=== PATIENT | female | born 1940 | race Hispanic/Latino ===

== ENCOUNTER → 2025-05-25 | Emergency (ER) | payer MEDICAID ==
[~2025-05-25] VITALS: Ht 154.9 cm; Wt 67.1 kg
[~2025-05-25] MED LIST: AMLO-257 PO; AZIT250T9 PO; BENZ-39 PO; FERR-82 PO; METF-445 PO; METH4TAB3 PO; VALS1TAB76 PO
[2025-05-25 08:01] LABS: APPEARANCE,URINE CLEAR (CLEAR); GLUCOSE, URINE (UA) NEGATIVE (NEGATIVE); LEUKOCYTE ESTERASE ,URINE NEGATIVE Leu/uL (NEGATIVE); NITRATE,URINE NEGATIVE (NEGATIVE); OCCULT BLOOD,URINE SMALL (NEGATIVE)
[2025-05-25 08:02] LABS: ADD UA MICROSCOPIC YES
[2025-05-25 08:04] LABS: SQUAMOUS EPITHELIAL CELL,UR RARE /HPF (0-2)
[2025-05-25 08:19] LABS: SARS-CoV-2, RNA, NAAT NEGATIVE SARS CoV-2 (NEGATIVE)
[2025-05-25 08:28] LABS: INFLUENZA TYPE A Negative For Type A (NEGATIVE); INFLUENZA TYPE B Negative For Type B (NEGATIVE)
--- NOTE | 2025-05-25 08:50 | HMCIMG ---
EXAM: CR Chest, single view. CLINICAL HISTORY: Cough. COMPARISON: None. FINDINGS: The lungs show no infiltrate or other acute findings. No pleural effusion or pneumothorax. Mild cardiomegaly. 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 No acute osseous abnormality. IMPRESSION: Mild cardiomegaly. 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 No acute infiltrates or effusion. /[place]
[2025-05-25 10:03] LABS: IMMATURE GRANULOCYTE ABSOLUTE 0.02 K/uL (0-1); NUCLEATED RED BLOOD CELLS 0.0 % (0.0-0.19); PLATELET COUNT (AUTO) 214 K/uL (130-400); RED BLOOD CELL COUNT(AUTO) 3.82 MIL/uL (4.00-5.50); RED CELL DISTRIBUTION WIDTH 13.1 % (11.0-15.5); WHITE BLOOD COUNT (AUTO) 4.4 K/uL (4.8-10.8)
[2025-05-25 10:36] LABS: ASPARTATE AMINOTRANSFERASE 28.0 U/L (10-37); CREATININE 0.4 mg/dL (0.5-1.0); GLOMERULAR FILTR. RATE CALC 99.0 mL/min (>90); GLUCOSE,RANDOM 112.0 mg/dL (70-105); SODIUM SERUM 131.0 mmol/L (136-145); TOTAL PROTEIN, SERUM 7.1 g/dL (6.0-8.3); UREA NITROGEN, BLOOD 12.0 mg/dL (7-18)
--- NOTE | 2025-05-25 10:40 | ERN ---
ED Note History of Present Illness Stated Complaint: COUGH AND CONGESTION Chief Complaint: Congestion Time Seen by MD: 07:57 Dictation: 84-year-old female presenting to the emergency department with cough cold congestion and body aches over the past few days, patient reports clear nasal congestion. No significant past medical history. Allergies: Coded Allergies: morphine (Unverified Allergy, Severe, HEADACHE, 11/04/15) Penicillins (Unverified Allergy, Intermediate, RASH, 11/04/15) Home Meds Reported Medications Metformin HCl (Metformin HCl) 850 Mg Tablet, 850 MG PO DAILY, AD 11/04/15 Valsartan/Hydrochlorothiazide (Valsartan-Hctz 160-12.5 mg Tab) 1 Each Tablet, 1 TAB PO DAILY, TAB 11/04/15 Amlodipine Besylate (Amlodipine Besylate) 5 Mg Tablet, 5 MG PO DAILY, TAB 11/04/15 Ferrous Sulfate (Iron) 325 Mg Tablet, 325 MG PO AM, TAB 11/04/15 Past Medical History Past Medical History: Arthritis, Hypertension Surgical History: Cholecystectomy Review of System Dictation Constitutional: Per HPI Eyes: Negative for injury, pain,redness, and discharge ENT: Per HPI Cardiovascular: Negative for chest pain, palpitations, and edema Respiratory: Per HPI Abdomen/GI: Negative for abdominal pain, nausea, vomiting, diarrhea, and constipation Back: Negative for injury and pain : Negative for injury, bleeding and discharge MS/Extremity: Negative for injury and deformity Skin: Negative for rash, and discoloration Neuro: Negative for headache, weakness, numbness, tingling, and seizure Psych: Negative for suicide ideation, homicidal ideation, and hallucinations Initial Vital Sign VS Vital Signs Date Time Temp Pulse Resp B/P (MAP) Pulse Ox O2 Delivery O2 Flow Rate FiO2 05/25/25 07:33 97.9 64 18 192/73 100 Room Air 0 05/25/25 09:53 21 Physical Exam Dictation General: awake, alert, NAD Head/Face: Normocephalic, atraumatic Eyes: PERRL, EOMI, vision at baseline ENT: oral cavity clear, TMs clear, no signs of infection Neck: Trachea midline, supple, no nuchal rigidity Cardiovascular: RRR, normal S1/S2, No MRGs, no JVD Respiratory: CTAB, no respiratory distress, No rales or wheezes Abdomen: Soft, non-tender, non-distended, normal bowel sounds, no guarding or rebound. Skin: Warm, dry, normal turgor, no rash MS/Extremity: Pulses equal, no cyanosis, neurovascular intact, FROM Neuro: COAx4, GCS 15, strength 5/5, CN 2-12 intact, normal cerebellar exam, normal gait, Psych: Normal behavior, mood, and affect normal Results (Laboratory/Radiology) Laboratory/Radiology Laboratory Tests Test 05/25/25 07:40 05/25/25 09:45 Urine Color LIGHT-YELLOW (YELLOW) Urine Appearance CLEAR (CLEAR) Urine pH 7.0 (5.0-8.0) Urine Specific [place] 1.007 (1.001-1.031) Urine Protein NEGATIVE mg/dL (NEGATIVE) Urine Glucose (UA) NEGATIVE mg/dL (NEGATIVE) Urine Ketones NEGATIVE mg/dL (NEGATIVE) Urine Occult Blood SMALL (NEGATIVE) H Urine Nitrate NEGATIVE (NEGATIVE) Urine Bilirubin NEGATIVE mg/dL (NEGATIVE) Urine Urobilinogen 0.2 mg/dL (0.2-1.0) Urine Leukocyte Esterase NEGATIVE Avel/uL Urine RBC 2-5 /HPF (0-1) H Urine WBC 0-1 /HPF (0-1) Urine Squamous Epithelial Cells RARE /HPF (0-2) Urine Bacteria None /HPF (None Seen) Influenza Type A Antigen Negative For Type A Influenza Type B Antigen Negative For Type B SARS-CoV-2, RNA, NAAT NEGATIVE SARS CoV-2 White Blood Count 4.4 K/uL (4.8-10.8) L Red Blood Count 3.82 MIL/uL (4.00-5.50) L Hemoglobin 11.4 g/dL (12.0-16.0) L Hematocrit 32.6 % (36-48) L Mean Corpuscular Volume 85.3 fL (79-99) Mean Corpuscular Hemoglobin 29.8 pg (27.0-33.0) Mean Corpuscular Hemoglobin Concent 35.0 g/dL (32.0-36.0) Red Cell Distribution Width 13.1 % (11.0-15.5) Platelet Count 214 K/uL (130-400) Mean Platelet Volume 10.2 fL (7.5-10.5) Immature Granulocyte % (Auto) 0.5 % (0-1) Neutrophils (%) (Auto) 72.6 % (40.0-77.0) Lymphocytes (%) (Auto) 18.1 % (21.0-51.0) L Monocytes (%) (Auto) 8.3 % (3.0-13.0) Eosinophils (%) (Auto) 0.0 % (0.0-8.0) Basophils (%) (Auto) 0.5 % (0.0-5.0) Neutrophils # (Auto) 3.2 K/uL (1.8-7.7) Lymphocytes # (Auto) 0.8 K/uL (1.0-4.8) L Monocytes # (Auto) 0.4 K/uL (0.1-1.0) Eosinophils # (Auto) 0.00 K/uL (0.00-0.70) Basophils # (Auto) 0.02 K/uL (0.00-0.20) Absolute Immature Granulocyte (auto 0.02 K/uL (0-1) Nucleated Red Blood Cells 0.0 % (0.0-0.19) Sodium Level 131 mmol/L (136-145) L Potassium Level 3.6 mmol/L (3.5-5.1) Chloride Level 98 mmol/L (101-111) L Carbon Dioxide Level 27 mmol/L (21-32) Blood Urea Nitrogen 12 mg/dL (7-18) Creatinine 0.4 mg/dL (0.5-1.0) L Glomerular Filtration Rate Calc 99 mL/min (>90) Random Glucose 112 mg/dL (70-105) H Lactic Acid Level 0.9 mmol/L (0.8-2.5) Total Calcium 8.5 mg/dL (8.5-10.1) Total Bilirubin 0.6 mg/dL (0.2-1.0) Direct Bilirubin 0.2 mg/dL (0.0-0.3) Aspartate Amino Transf (AST/SGOT) 28 U/L (10-37) Alanine Aminotransferase (ALT/SGPT) 21 U/L (12-78) Alkaline Phosphatase 71 U/L (50-136) Troponin I High Sensitivity 9 ng/L (4-50) Total Protein 7.1 g/dL (6.0-8.3) Albumin 3.4 g/dL (3.5-5.0) L Labs Reviewed?: Yes EKG Comment: Heart rate 60, ventricularly paced, no STEMI ED Course ED Course Orders Procedure Category Date Status Time Influenza Type A & B, LAB 05/25/25 Complete Rapid 07:38 Covid Rna Naat LAB 05/25/25 Complete 07:38 Urinalysis Profile LAB 05/25/25 Complete 07:50 12 Lead Ekg Tracing- EKG 05/25/25 Logged Technical 07:58 Cbc With Differential LAB 05/25/25 Complete 07:58 Blood Cult LIAM 05/25/25 In Process 07:58 Basic Metabolic Panel LAB 05/25/25 Complete 07:58 Hepatic Function Panel LAB 05/25/25 Complete 07:58 Lactic Acid LAB 05/25/25 Complete 07:58 Troponin I High LAB 05/25/25 Complete Sensitivity 07:58 Chest 1vw RAD 05/25/25 Resulted 07:58 Ondansetron 4mg Inj PHA 05/25/25 Logged (Zofran 4mg Inj) 10:34 0.9%Nacl 1000ml (Ns PHA 05/25/25 Logged 1000ml) 11:00 Ceftriaxone 1g Vial PHA 05/25/25 Logged (Rocephine 1g Inj) 10:34 Current Medications Medications (Trade) Dose Ordered Sig/Arley Route PRN Reason Start Time Stop Time Status Last Admin Dose Admin Ceftriaxone Sodium (ROCEphine 1G INJ) 1 gm ONCE STAT IVPB 05/25/25 10:34 05/25/25 10:35 UNV Ondansetron HCl (zoFRAN 4MG INJ) 4 mg ONCE STAT IVP 05/25/25 10:34 05/25/25 10:35 UNV Sodium Chloride 1,000 ml @ 0 mls/hr ONCE ONCE IV 05/25/25 11:00 05/25/25 11:01 UNV Vital Signs Date Time Temp Pulse Resp B/P (MAP) Pulse Ox O2 Delivery O2 Flow Rate FiO2 05/25/25 09:53 97.7 60 18 154/65 100 Room Air* 0 21 05/25/25 07:33 97.9 64 18 192/73 100 Room Air 0 Medical Decision Making MDM MDM: Differential diagnosis: Rationale: Tests considered and ordered secondary to shared decision making include: Previous outside records reviewed: Old ER visits. Risk of complication and/or morbidity or mortality of patient management: None Medications-Per medication reconciliation Need for hospitalization: Patient does not meet criteria for hospitalization. Need for emergency major/minor surgery: No There are no social concerns with this patient. Prescription drug management Prescriptions will include symptomatic care Patient's prior external medical records from other ER visits were reviewed by me as indicated. Prior testing and results from previous visits were reviewed. Prior tests were taken into account with medical decision making and resource utilization, independent historian/historians were used to obtain complete medical history. I independently interpreted the test that were performed, results were reviewed by me and considered findings on radiology if ordered. Medical management and examination interpretation discussions were had by me with other qualified healthcare professionals as indicated for the patient's care. 84-year-old female with URI, stable exam clear chest x-ray and labs no leukocytosis or fever, low clinical likelihood of sepsis, patient given IV fluids and placed on atypical coverage for discharge. DX & DISP Disposition: Discharge Departure Impression: Primary Impression: Acute URI Condition: Stable Scripts Azithromycin (Azithromycin) 250 Mg Tablet 250 MG PO AD for cough for 5 Days, #6 TAB Prov: SURAJ BURDEN MD 05/25/25 Referrals: SELF,REFERRAL (PCP) SURAJ BURDEN MD May 25, 2025 10:40
[2025-05-25] MEDS: 0.9%NACL 1000ML 1,000 ML IV ONE (10:48)
[2025-05-25 12:00] VITALS: BP 148/63; PULSE 95; RESP 18; TEMP 97.7; O2SAT 99
--- NOTE | 2025-05-25 14:02 | EKG ---
[facility] Test Date: 2025-05-25 Test Time: 08:23:04 Pat Name: VANDANA CORDERO Department: ED Room: Gender: F [employer] Instructor: [id number] : 1940 Requested By: SURAJ BURDEN Order Number: [id number] Reading MD: Thomas Jones Measurements Intervals [place] Rate: 60 P: 0 [place]: 146 QRS: -70 QRSD: 171 T: 105 QT: 484 QTc: 484 Interpretive Statements Ventricular-paced rhythm Compared to ECG 11/04/2015 06:52:09 Sinus rhythm no longer present First degree AV block no longer present Electronically Signed On 05-25-2025 16:35:01 CDT by Thomas Jones Please click the below link to view image of tracing.
== END ==
LOC: EDH 07:30
DX: J06.9 Acute upper respiratory infection, unspecified (principal); I10 Essential (primary) hypertension; M19.90 Unspecified osteoarthritis, unspecified site; Z20.822 Contact with and (suspected) exposure to COVID-19; Z79.84 Long term (current) use of oral hypoglycemic drugs; Z79.899 Other long term (current) drug therapy; Z88.0 Allergy status to penicillin; Z88.5 Allergy status to narcotic agent; Z90.49 Acquired absence of other specified parts of digestive tract; Z95.0 Presence of cardiac pacemaker
CPT/HCPCS: 99285; 96365; 71045; 87635; 96375; 80076; 84484; 80048; 85025; 87040 ×2; 87804 ×2; 83605; 81001; 36415; 93005; J7030; J0696; J2405

== ENCOUNTER 2025-05-28 14:53 | Emergency (ER) | payer SELFPAY ==
[~2025-05-28] VITALS: Ht 152.4 cm; Wt 56.7 kg
[~2025-05-28 14:53] MED LIST changes: -BENZ-39 PO; -METH4TAB3 PO
--- NOTE | 2025-05-28 15:09 | ERN ---
ED Note History of Present Illness Stated Complaint: CHEST CONGESTION Chief Complaint: Congestion Time Seen by MD: 14:55 Dictation: PATIENT IS A 84-YEAR-OLD FEMALE COMING IN TODAY STATES SHE HAS HAD A NONPRODUCTIVE COUGH DRY FOR THE LAST 2-3 WEEKS. NO FEVER NO CHILLS NO NAUSEA VOMITING. NO CHEST PAIN NO BACK PAIN NO SOB. SHE STATES SHE WAS TREATED WITH A Z-KELLY AND A COUGH SUPPRESSANT COUPLE OF WEEKS AGO AT [facility] [place], DID NOT FOLLOW UP WITH THE DOCTOR OUTPATIENT. SHE CURRENTLY STATES SHE IS IN NO ACUTE DISTRESS JUST WANTS SOME HELP WITH THE COUGH. Allergies: Coded Allergies: morphine (Unverified Allergy, Severe, HEADACHE, 11/04/15) Penicillins (Unverified Allergy, Intermediate, RASH, 11/04/15) Home Meds Active Scripts Azithromycin (Azithromycin) 250 Mg Tablet, 250 MG PO AD for cough for 5 Days, #6 TAB Prov:SURAJ BURDEN MD 05/25/25 Reported Medications Metformin HCl (Metformin HCl) 850 Mg Tablet, 850 MG PO DAILY, AD 11/04/15 Valsartan/Hydrochlorothiazide (Valsartan-Hctz 160-12.5 mg Tab) 1 Each Tablet, 1 TAB PO DAILY, TAB 11/04/15 Amlodipine Besylate (Amlodipine Besylate) 5 Mg Tablet, 5 MG PO DAILY, TAB 16 Ferrous Sulfate (Iron) 325 Mg Tablet, 325 MG PO AM, TAB 11/04/15 Past Medical History Past Medical History: Arthritis, Hypertension Surgical History: Cholecystectomy History: Not Applicable RN Note Reviewed/Agreed w/PFSH: Yes Review of System Dictation CONSTITUTIONAL: NEGATIVE EXCEPT FOR HPI HEAD/FACE: NEGATIVE EXCEPT FOR HPI EENT: NEGATIVE EXCEPT FOR HPI RESPIRATORY: NEGATIVE EXCEPT FOR HPI PERSISTENT COUGH GASTROINTESTINAL/ABDOMINAL: NEGATIVE EXCEPT FOR HPI GENITOURINARY: NEGATIVE EXCEPT FOR HPI MUSCULOSKELETAL: NEGATIVE EXCEPT FOR HPI INTEGUMENTARY: NEGATIVE EXCEPT FOR HPI NEUROLOGICAL/PSYCH: NEGATIVE EXCEPT FOR HPI HEMATOLOGIC/LYMPHATIC: NEGATIVE EXCEPT FOR HPI ALL SYSTEMS NEGATIVE, EXCEPT NOTED ABOVE. 13 POINT REVIEW OF SYSTEMS ASSESSED AND ALL NEGATIVE EXCEPT FOR ABOVE. Initial Vital Sign VS Vital Signs Date Time Temp Pulse Resp B/P (MAP) Pulse Ox O2 Delivery O2 Flow Rate FiO2 05/28/25 14:54 98.4 60 18 185/69 99 Room Air 05/28/25 15:17 0 21 Physical Exam Dictation VITAL SIGNS REVIEWED GENERAL APPEARANCE: ALERT, ORIENTED X 3, NO ACUTE DISTRESS, WELL DEVELOPED, NOURISHED. YOUR OVER 10 PAIN HEAD AND FACE: NON-TRAUMATIC. EYES: PERRL, PINK CONJUNCTIVAS, EYELID NO TRAUMA, ANTERIOR CHAMBER WITH ARCUS SENILIS. EARS: PINNAS INTACT AND NO SIGNS OF TRAUMA OR ERYTHEMA EAR CANALS CLEAR AND NO DISCHARGE TM NO ERYTHEMA NOSE: NO DISCHARGE, NO BLEEDING. OROPHARYNX: MOUTH NORMAL, TONGUE PINK, PHARYNX CLEAR,NO ERYTHEMA, TONSILS NO EXUDATES, NO ABSCESSES NOTED, MUCOUS MEMBRANE MOIST NECK: SUPPLE, NON-TENDER, NO THYROMEGALY, NO MASSES, NO JVD, NO BRUITS BREAST:DEFERRED CHEST:NO TENDERNESS, NO CREPITUS, NO PARADOXICAL MOVEMENT, NO RETRACTIONS LUNGS:CLEAR, WELL-VENTILATED, SYMMETRIC, NO RALES, NO WHEEZING, NO RHONCHI, NO STRIDOR, GOOD BREATH SOUNDS BILATERALLY NO TACHYPNEA NO RETRACTIONS HEART: REGULAR RATE, REGULAR RHYTHM, NO MURMUR, NO GALLOPS VASCULAR: NO PERIPHERAL EDEMA, WITH THE ABDOMEN: SOFT, POSITIVE BOWEL SOUNDS, NONDISTENDED, NO GUARDING, NONTENDER, NO REBOUND, NO MASSES NO HEPATOMEGALY, NO SPLENOMEGALY, NO AUGUSTIN'S SIGN, NO HERNIAS. RECTAL: DEFERRED GENITAL: DEFERRED NEUROLOGICAL: NORMAL SPEECH, MOTOR FUNCTION INTACT, SENSORY FUNCTION INTACT MUSCULOSKELETAL: NECK NONTENDER, FULL RANGE OF MOTION, BACK NONTENDER, FULL RANGE OF MOTION, EXTREMITIES: NONTENDER, FULL RANGE OF MOTION SKIN: COLOR PINK, DRY, NO TURGOR, NO RASH, NO LACERATIONS, NO ABRASIONS, NO CONTUSIONS. LYMPHATIC: DEFERRED Results (Laboratory/Radiology) Laboratory/Radiology CHEST X-RAY NEGATIVE Labs Reviewed?: Yes ED Course ED Course Orders Procedure Category Date Status Time Chest 1vw RAD 05/28/25 Taken 15:06 Dexamethasone 4mg/Ml PHA 05/28/25 Complete 1ml Vial (Dexametha 15:30 Current Medications Medications (Trade) Dose Ordered Sig/Arley Route PRN Reason Start Time Stop Time Status Last Admin Dose Admin Dexamethasone Sodium Phosphate (dexaMETHasone 4MG/ML 1ML VIAL) 8 mg ONCE ONCE IM 05/28/25 15:30 05/28/25 15:31 DC 05/28/25 15:41 Vital Signs Date Time Temp Pulse Resp B/P (MAP) Pulse Ox O2 Delivery O2 Flow Rate FiO2 05/28/25 15:17 98.2 59 16 167/70 98 Room Air* 0 21 05/28/25 14:54 98.4 60 18 185/69 99 Room Air 1545/PATIENT DISCHARGED HOME WITH A ACUTE VIRAL SYNDROME AND COUGH GIVEN MEDROL DOSEPAK AND TESSALON GIVEN A LIST OF LOCAL DOCTOR Medical Decision Making MDM MEDICAL DECISION-MAKING BASED ON CHEST X-RAY AND TREATMENT FOR PERSISTENT COUGH NO LABS INDICATED CHEST X-RAY CLEAR NO PNEUMONIA NO EFFUSION PATIENT DISCHARGED HOME WITH TESSALON PERLES AND MEDROL DOSEPAK PATIENT GIVEN A LIST OF PRIMARY CARE DOCTORS ON STAFF AND SOLE TO FOLLOW UP NEXT WEEK DX & DISP Disposition: Discharge Departure Impression: Primary Impression: Viral URI with cough Condition: Stable Scripts Methylprednisolone (Medrol) 4 Mg Tab.ds.pk 1 TAB PO AD for 6 Days, #21 TAB 0 Refills 6 on day 1 then reduce by one tablet daily until gone Prov: CARRIE GALAN 05/28/25 Benzonatate (Tessalon Perles) 100 Mg Cap 200 MG PO TID for cough, #60 CAP 0 Refills Prov: CARRIE GALAN 05/28/25 Additional Instructions: FOLLOW-UP WITH PRIMARY CARE PROVIDER IN 1 TO 2 DAYS. TAKE MEDICATIONS DIRECTED HERE IN THE EMERGENCY ROOM. OKAY TO CONTINUE HOME MEDICATIONS UNLESS OTHERWISE DISCUSSED DURING YOUR VISIT IN THE EMERGENCY ROOM TODAY. RETURN TO YOUR NEAREST EMERGENCY ROOM IF SYMPTOMS WORSEN OR IF THERE IS NO IMPROVEMENT. CALL 911 IF YOU NEED IMMEDIATE ASSISTANCE. TAKE TYLENOL OR MOTRIN OVER-THE- COUNTER NEEDED AND IF NO CONTRAINDICATIONS ARE PRESENT. INCREASE ORAL HYDRATION. A WOUND CULTURE OR URINE CULTURE WAS ORDERED HERE IN THE EMERGENCY ROOM DEPARTMENT PLEASE FOLLOW-UP WITH PRIMARY CARE PROVIDER AND ADVISE THEM TO GET REPEAT PORTS FROM OUR FACILITY. IF YOU HAD ANY [place] WRAP/SPLINTS THAT WERE APPLIED HERE, PLEASE DO NOT REMOVE THEM UNTIL YOU SEE YOUR PRIMARY CARE OR SPECIALTY. TAKE MEDROL DOSEPAK DIRECTED UNTIL GONE. TAKE TESSALON PERLES EVERY8 HOURS FOR THE NEXT THREE DAYS. FOLLOW UP WITH ONE OF THE DOCTORS ON THE LIST PROVIDED YOU NEXT WEEK. Referrals: SELF,REFERRAL (PCP) Time of Disposition: 15:45 I have reviewed the case, and I agree with, Diagnosis and Plan CARRIE GALAN May 28, 2025 15:09
[2025-05-28 15:17] VITALS: BP 167/70; PULSE 59; RESP 16; TEMP 98.3; O2SAT 98
[2025-05-28] MEDS ORDERED: BENZ-39 PO (15:47)
[2025-05-28] MEDS ORDERED: METH4TAB3 PO (15:47)
--- NOTE | 2025-05-28 16:02 | HMCIMG ---
CR CHEST 1 VIEW Clinical Details: Patient presents with a nonproductive cough of 2???3 weeks duration. Technique: A single-view chest radiograph (CR) was obtained according to standard protocol. Findings: Comparison is made with the exam dated 25 May 2025. Cardiac/Mediastinum: There is mild cardiomegaly, unchanged from the prior study dated 25 May 2025. Aortic arch calcification is present and stable. Devices: A right anterior chest wall pacemaker is visualized with leads positioned within the right atrium and right ventricle; the device position is stable compared to the prior study. Lungs: The lungs are clear with no evidence of infiltrate or consolidation. No new abnormalities are identified. Pleura: There is no pleural effusion or pneumothorax. Bones: No acute osseous abnormality is detected. Impression: * Interval stability of mild cardiomegaly and right anterior chest wall pacemaker positioning compared to 25 May 2025. * Presence of aortic arch calcification. * No new pulmonary infiltrates, consolidations, pleural effusions, or pneumothorax. * Overall stable appearance. * Recommendation for routine follow-up as clinically indicated. /[place]
== END 2025-05-28 16:06 | disposition home or self-care (01) ==
LOC: EDH 14:53
DX: J06.9 Acute upper respiratory infection, unspecified (principal); B97.89 Other viral agents as the cause of diseases classified elsewhere; I10 Essential (primary) hypertension; M19.90 Unspecified osteoarthritis, unspecified site; Z88.0 Allergy status to penicillin; Z88.5 Allergy status to narcotic agent; Z90.49 Acquired absence of other specified parts of digestive tract; Z79.899 Other long term (current) drug therapy; Z79.84 Long term (current) use of oral hypoglycemic drugs; Z95.0 Presence of cardiac pacemaker
CPT/HCPCS: 99283; 71045; 96372; J1100